=== PATIENT | female | born 1985 | race Hispanic/Latino ===

== ENCOUNTER 2017-02-23 15:03 | Emergency (ER) | payer OTHER ==
[2017-02-23 15:40] VITALS: BP 121/55; PULSE 90; RESP 16; TEMP 98.3; O2SAT 99
--- NOTE | 2017-02-23 17:19 | ED PDOC ---
HPI: General Adult Time Seen by Provider: 02/23/17 17:01 Chief Complaint (Nursing): ENT Problem Chief Complaint (Provider): Neck Swelling History Per: Patient History/Exam Limitations: no limitations Onset/Duration Of Symptoms: Days Have you had recent travel within the past 21 days to any of the following countries: [place], [place], [place] or [place]?: No Current Symptoms Are (Timing): Still Present Severity: Moderate Location: Neck Additional Complaint(s): Patti Sands is a 31 year old female, with a past medical history of congenital heart disease and aortic cyanosis, who presents to the emergency department with complaints of neck swelling, that the patient has been experiencing for the past week. The pain is located on the left lateral, anterior side of the patient's neck and worsens with movement. Patient reports being prescribed antibioitics by her primary medical doctor for the swelling in December, but has since then ran out. PMD: Shaik Andrey Past Medical History Reviewed: Historical Data, Nursing Documentation, Vital Signs Vital Signs: Last Vital Signs Temp 98.3 F 02/23/17 15:37 Pulse 90 02/23/17 15:37 Resp 16 02/23/17 15:37 BP 121/55 L 02/23/17 15:37 Pulse Ox 99 02/23/17 20:40 - Medical History PMH: Denies: Chronic Kidney Disease Other PMH: Congenital Heart Disease and Aortic Cyanosis - Family History Family History: States: Unknown Family Hx - Allergies Allergies/Adverse Reactions: Allergies Allergy/AdvReac Type Severity Reaction Status Date / Time No Known Allergies Allergy Verified 02/23/17 15:36 Review of Systems ROS Statement: Except As Marked, All Systems Reviewed And Found Negative Constitutional: Negative for: Fever Musculoskeletal: Positive for: Neck Pain (left lateral, anterior inclusive of swelling) Skin: Negative for: Rash Neurological: Negative for: Weakness, Numbness Physical Exam - Reviewed Nursing Documentation Reviewed: Yes Vital Signs Reviewed: Yes - Physical Exam Appears: Positive for: Non-toxic, No Acute Distress Head Exam: Positive for: ATRAUMATIC, NORMOCEPHALIC Skin: Positive for: Normal Color, Dry Eye Exam: Positive for: Normal appearance ENT: Negative for: Pharyngeal Erythema, Tonsillar Swelling Neck: Positive for: Normal, Supple, Decreased ROM (left lateral, anterior supraclavicular region inclusive of painful swelling), Pain On Movement Of Neck. Negative for: Painless ROM Respiratory: Positive for: Normal Breath Sounds. Negative for: Respiratory Distress Extremity: Positive for: Normal ROM. Negative for: Tenderness Neurologic/Psych: Positive for: Alert, Oriented. Negative for: Motor/Sensory Deficits - Laboratory Results Result Diagrams: 02/23/17 17:30 02/23/17 18:00 - ECG O2 Sat by Pulse Oximetry: 99 (RA) Pulse Ox Interpretation: Normal - Progress ED Course And Treament: ct neck: IMPRESSION: Mild left jugular adenopathy. No definite neck abscess. Clinical followup recommended Thank you for allowing us to participate in the care of your patient. Dictated and Authenticated by: Collins Bhagat MD d/w patient. mono sent. Patient to f/u with pmd in 2 days for further management. mono neg Medical Decision Making Medical Decision Makin:01 Initial Impression: neck swelling Initial Plan: * CT Neck Soft Tissue w/ Contrast * CBC * CMP * Urine * Reevaluation Scribe Attestation: Documented by Cam Oliver, training under Meli James, acting as a scribe for Honey WALL. Provider Scribe Attestation: All medical record entries made by the Scribe were at my direction and personally dictated by me. I have reviewed the chart and agree that the record accurately reflects my personal performance of the history, physical exam, medical decision making, and the department course for this patient. I have also personally directed, reviewed, and agree with the discharge instructions and disposition. Disposition - Clinical Impression Clinical Impression: Lymphadenopathy - Patient ED Disposition Is Patient to be Admitted: No - Disposition Disposition: Routine/Home Disposition Time: 20:40 Condition: FAIR Instructions: Lymphadenopathy (ED)
[2017-02-23 18:28] LABS: BASO % 0.4 % (0.0-2.0); EOS # 0.3 K/uL (0.0-0.7); HEMATOCRIT 38.6 % (34.0-47.0); LYMPH # 2.2 K/uL (1.0-4.3); MEAN CELL VOLUME 88.5 fl (81.0-99.0); MEAN CORPUSCULAR HEMOGLOBIN 29.3 pg (27.0-31.0); MEAN CORPUSCULAR HGB CONC 33.1 g/dL (33.0-37.0); MEAN PLATELET VOLUME 8.7 fl (7.2-11.7); MONO # 0.6 K/uL (0.0-0.8); MONO % 7.1 % (0.0-10.0); NEUT # 5.1 K/uL (1.8-7.0); NEUT % 61.5 % (50.0-75.0); NRBC % 0.1 % (0.0-0.0); RED CELL DISTRIBUTION WIDTH 14.3 % (11.5-14.5); WHITE BLOOD COUNT 8.3 K/uL (4.8-10.8)
[2017-02-23 18:45] LABS: ALB/GLOB RATIO 1.2 (1.0-2.1); ALKALINE PHOSPHATASE 75 U/L (38-126); ALT/SGPT 31 U/L (9-52); AST/SGOT 29 U/L (14-36); BILIRUBIN,TOTAL 0.4 mg/dl (0.2-1.3); BLOOD UREA NITROGEN 14 mg/dl (7-17); CALCIUM 8.9 mg/dL (8.4-10.2); CARBON DIOXIDE 26 mmol/L (22-30); CHLORIDE 102 mmol/L (98-107); GFR AFRICAN-AMERICAN > 60; GLUCOSE,RANDOM 93 mg/dL (65-105); POTASSIUM 3.6 MMOL/L (3.6-5.0); SODIUM 143 mmol/l (132-148); TOTAL PROTEIN 7.9 G/DL (6.3-8.2)
[2017-02-23] MEDS ORDERED: Iohexol 300 100 ML IJ ONE (19:27)
[2017-02-23] MEDS ORDERED: Sodium Chloride 0.9% 50 ML IV ONE (19:27)
--- NOTE | 2017-02-24 08:58 | CT ---
PROCEDURE: CT NECK WITH CONTRAST HISTORY: LEFT NECK SWELLING COMPARISON: None TECHNIQUE: CT of the neck with intravenous contrast. Coronal and sagittal reformats generated. Intravenous contrast dose: 80 cc Omnipaque 300 Radiation dose: DLP 382.20 mGy-cm This CT exam was performed using one or more of the following dose reduction techniques: Automated exposure control, adjustment of the mA and/or kV according to patient size, and/or use of iterative reconstruction technique. FINDINGS: NASOPHARYNX: Within normal limits. SUPRAHYOID NECK: The oropharynx, oral cavity, parapharyngeal space and retropharyngeal space are normal. The tonsils are normal. INFRAHYOID NECK: The larynx, hypopharynx, and supraglottic space are normal. Vocal cords intact. MASS: None. GLANDS: The right parotid gland and submandibular glands unremarkable. Normal size thyroid gland, without nodule. LYMPH NODES: There are enlarged left jugular chain lymph nodes. CERVICAL SPINE: No fracture or focal lesion. VASCULAR STRUCTURES: Unremarkable. OTHER FINDINGS: There is diffuse ill-defined soft tissue in the left subcutaneous fat of the neck also extending into the left superior mediastinum. There is also asymmetric enlargement of the left sternocleidomastoid with ill-defined low-attenuation in the midportion of the muscle below the parotid gland. There is also mild asymmetric enlargement of the left parotid gland. IMPRESSION: Findings are consistent with left neck cellulitis and probable reactive enlargement of the left parotid gland and left sternocleidomastoid muscles. Ill-defined density in the left sternocleidomastoid in the midportion could represent edema or myositis. Reactive upper jugular chain lymphadenopathy. There are important findings on the CT scan in addition to the preliminary report provided by [email or web address]. Additional important findings were discussed with Dr. Sanches in the ER on 02/24/2017 at 8:55 a.m.
== END 2017-02-23 23:32 | disposition home or self-care (01) ==
LOC: H.ER 15:03
DX: R59.1 Generalized enlarged lymph nodes (principal)

== ENCOUNTER 2019-04-06 08:18 | Emergency (ER) | payer OTHER ==
[2019-04-06 08:25] VITALS: RESP 16; TEMP 98.3; O2SAT 100; BMI 20.9
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
--- NOTE | 2019-04-06 11:39 | CT ---
Date of service: 04/06/2019 PROCEDURE: CT HEAD WITHOUT CONTRAST. HISTORY: r/o bleed COMPARISON: None available. TECHNIQUE: Axial computed tomography images were obtained through the head/brain without intravenous contrast. Radiation dose: Total exam DLP = 855.61 mGy-cm. This CT exam was performed using one or more of the following dose reduction techniques: Automated exposure control, adjustment of the mA and/or kV according to patient size, and/or use of iterative reconstruction technique. FINDINGS: HEMORRHAGE: No intracranial hemorrhage. BRAIN: No mass effect or edema. No atrophy or chronic microvascular ischemic changes. VENTRICLES: Unremarkable. No hydrocephalus. CALVARIUM: Unremarkable. PARANASAL SINUSES: Bilateral ethmoidal sinusitis chronic and possibly acute on chronic. MASTOID AIR CELLS: Unremarkable as visualized. No inflammatory changes. OTHER FINDINGS: 1 mm and sub mm singular appearing calcifications near right frontal parietal convexity and left fronto temporal lobe convexity. No associated mass effect. Probably relating to a remote inflammatory etiology. IMPRESSION: No intracranial hemorrhage or mass effect. Ethmoidal sinusitis Other findings as above.
--- NOTE | 2019-04-06 12:44 | RAD ---
PROCEDURE: Right Hip Radiographs. HISTORY: Trauma COMPARISON: None. TECHNIQUE: 3 views obtained. FINDINGS: BONES: Bone alignment and mineralization are normal. There is no acute displaced fracture or bone destruction. JOINTS: Normal. SOFT TISSUES: Normal. OTHER FINDINGS: None. IMPRESSION: No acute displaced fracture or dislocation.
[2019-04-06 13:18] VITALS: BP 126/70; PULSE 70
== END 2019-04-06 13:00 | disposition home or self-care (01) ==
LOC: H.ER 08:18
DX: S09.90XA Unspecified injury of head, initial encounter (principal); S70.02XA Contusion of left hip, initial encounter; V43.52XA Car driver injured in collision with other type car in traffic accident, initial encounter; Y92.410 Unspecified street and highway as the place of occurrence of the external cause; Z95.0 Presence of cardiac pacemaker